=== PATIENT | female | born 1955 | race Caucasian/White ===

== ENCOUNTER → 2017-04-08 | Day surgery (SDC) | payer MEDICARE, MEDICAID ==
[~2017-04-08] VITALS: Ht 142.2 cm; Wt 72.8 kg
[~2017-04-08] MED LIST: CYMBALTA30 MG PO; CYMBALTA60 MG PO; DOLOPHINE10 MG PO; DRISDOL 5050000 UNIT PO; MACRODANTIN *IA50 MG PO; NEURONTIN300 MG PO; NYSTATIN1 EACH TOP; OXYGEN M-15 INH; PERCOCET 10-321 EACH PO; TEGRETOL200 MG PO; TOVIAZ8 MG PO; VITAMIN C500 M1 PO
--- NOTE | ~2017-04-08 | OR ---
PATIENT'S NAME: PRISCILLA BISHOP [facility] AGE: 61 Y [address] ROOM: [place] [id number] [place] [facility] [place]: 04/08/2017 OR/Procedure Report DISCHARGE DATE: FAMILY PHYSICIAN: WALE OVERTON APRN ATTENDING PHYSICIAN: CHELLE TIAN SURGEON: Chelle Tian MD HEARING STENOGRAPHER: None. DATE OF PROCEDURE: 04/08/2017 PREOPERATIVE DIAGNOSIS: Bladder stone. POSTOPERATIVE DIAGNOSIS: Bladder stone. OPERATIVE PROCEDURE: Cystolithotripsy (stone size greater than 2.5 cm). ANESTHESIA ADMINISTERED: Monitored anesthesia care. INDICATIONS FOR PROCEDURE: The patient is a pleasant, 61-year-old female, who was recently noted to have a large bladder stone on cystoscopy. The patient was explained the risks, benefits, indications, and alternatives to the above procedure and wished to proceed and consented freely. DESCRIPTION OF OPERATION: The patient was brought back to the operating room, where she was placed on the OR table in the supine position. A surgical time- out was called where patient identification, surgical site, and procedure was then verified. We also did verify that the patient received an IV Levaquin antibiotic within an hour of beginning the procedure. The patient was then kept in the supine position where her abdomen and suprapubic tube area were then prepped and draped in the usual sterile fashion. We had removed her old 20-St Helenian suprapubic tube catheter. Given her 20-St Helenian tract, I did have to dilate up her suprapubic tube tract using female urethral sounds up to 26- [place] Helenian in caliber. I then was able to advance the nephroscope easily into the patient's urinary bladder via the suprapubic tube tract. I was then able to carefully visualize the large bladder stone. Which was approximately 3 cm in size. Her bladder was negative for any bladder tumors, cellules, or diverticula. I then used the Olympus Unda wand ultrasonic lithotriptor system to carefully fragment the large stone as well as simultaneously evacuating stone debris via the CyberWand device. I carefully fragmented the entire stone until there was no fragments remaining. On further inspection again, there was no residual stone remaining in the bladder. I then carefully withdrew the nephroscope. And then replaced a new 20-St Helenian suprapubic tube catheter with 30 mL of sterile water in the balloon and this was placed to gravity drainage. The patient was then transferred over to the recovery bed after being awoken from monitored anesthesia care. The patient was then transferred to the recovery room in good condition. The patient did tolerate PATIENT'S NAME: PRISCILLA BISHOP [facility] AGE: 61 Y [address] ROOM: [place] [id number] LOCATION: [facility] [place] DATE: 04/08/2017 OR/Procedure Report DISCHARGE DATE: FAMILY PHYSICIAN: WALE OVERTON APRN ATTENDING PHYSICIAN: CHELLE TIAN the procedure well. COMPLICATIONS: None. SPECIMENS: None. DRAINS: Indwelling 20-St Helenian suprapubic tube catheter to gravity drainage. FOLLOWUP PLAN: We will plan to see the patient back for followup in [facility]rology Clinic in approximately 6 to 8 weeks. CHELLE TIAN MD GP/modl /[id number] CC: Orion Sinclair PA-C d: 04/08/17 1205 t: 04/15/17 1833, OPERATIVE SUMMARY
[2017-04-08 07:57] LABS: ALBUMIN 3.3 gm/dL (3.5-5.0); ALK PHOS 90 IU/L (33-138); ALT 20 IU/L (12-78); ANION GAP 14.3 (10.0-19.0); AST 10 IU/L (10-40); BLOOD UREA NITROGEN 9 mg/dL (6-24); CALCIUM 9.1 mg/dL (8.5-10.5); CHLORIDE 101 mMol/L (96-110); CO2 26 mMol/L (22-32); CREATININE 0.4 mg/dL (0.5-1.1); ESTIMATED GFR (MDRD EQUATION) > 60; POTASSIUM 4.3 mMol/L (3.7-5.1); SODIUM 137 mMol/L (135-145); TOTAL BILIRUBIN 0.2 mg/dL (0.0-1.5); TOTAL PROTEIN 6.7 g/dL (6.0-8.4)
[2017-04-08 08:07] LABS: BASOPHIL # 0.1 K/uL (0.0-0.2); BASOPHIL % 0.9 %; EOSINOPHIL # 0.2 K/uL (0.0-0.5); EOSINOPHIL % 3.6 %; HEMATOCRIT 36.7 % (33.0-46.0); HEMOGLOBIN 12.4 g/dL (10.0-15.0); IMMATURE GRANULOCYTE # 0.1 K/uL (0.0-0.3); IMMATURE GRANULOCYTE % 0.9 %; LYMPHOCYTE # 1.9 K/uL (0.8-4.0); LYMPHOCYTE % 35.3 %; MCH 30.8 pg (27.0-34.0); MCHC 33.8 gm/dL (32.0-36.5); MCV 91.3 fl (83.0-98.0); MONOCYTE # 0.5 K/uL (0.0-1.0); MONOCYTE % 9.4 %; MPV 8.7 fl (9.4-12.4); NEUTROPHIL # (ANC) 2.7 K/uL (1.8-7.8); NEUTROPHIL % 49.9 %; NRBC % 0 /100WBC (0-0.00); PLATELET COUNT 261 K/uL (150-450); RBC 4.02 M/uL (3.50-5.50); WBC 5.3 K/uL (4.0-11.0)
== END | disposition disaster alternative care site (69) ==
LOC: GPOC 04-06 08:00 → GSDC 06:46 → GPOC 08:00
PROVIDERS: Urology
PROC: 0TCB8ZZ Extirpation of Matter from Bladder, Via Natural or Artificial Opening Endoscopic (ICD-10-PCS; principal; 2017-04-08)
DX: N21.0 Calculus in bladder (principal); N31.9 Neuromuscular dysfunction of bladder, unspecified; Z87.440 Personal history of urinary (tract) infections; Z88.5 Allergy status to narcotic agent; Z88.1 Allergy status to other antibiotic agents; Z87.891 Personal history of nicotine dependence
CPT/HCPCS: C1769; J0131; J1885; J1956; J2001; J3010; J7030